=== PATIENT | male | born 1950 | race Caucasian/White ===

== ENCOUNTER → 2017-06-12 | Outpatient (CLI) | payer OTHER ==
[~2017-06-12] VITALS: Ht 188 cm; Wt 99.4 kg
[~2017-06-12] MED LIST: ACETAMINOPHEN-1 EACH PO; ATIVAN0.5 MG PO; AVELOX 400 MG400 MG PO; BACTRIM DS TAB1 EACH PO; CHLORHEXADINE120 M1 TOP; CLONIDINE0.1 PO; CYMBALTA60 MG PO; HYDROCODONE-APA1 TA1 PO; KLONOPIN0.5 MG PO; MOBIC7.5 MG PO; MS CONTIN15 MG PO; NEURONTIN 300300 M1 PO; NEURONTIN100 MG PO; OXYCONTIN PO; OXYCONTIN10 M1 PO; OXYCONTIN15 MG PO; OXYCONTIN20 M1 PO; OXYCONTIN20 MG PO; PERCOCET 7.5-31 EACH PO; TRAZODONE 150150 M1 PO; VOLTAREN GEL 1100 G1 TOP; XANAX 0.5 MG0.5 M1 PO; XANAX 0.5 MG0.5 MG PO; oxycontin PO
--- NOTE | ~2017-06-12 | HPC ---
[facility] [address] [place] [address] PAIN MANAGEMENT CONSULTATION Name: CHELSEABRIANNA Sotero Room #: REG REEMA Jay#: [id number] Admission: 06/12/17 Attend Phys: Tuan Holbrook DO Discharge: Date of : 48 Report #: [id number] THIS REPORT FOR: //name// CC: HINA Holbrook HISTORY OF PRESENT ILLNESS: The patient is a 67-year-old gentleman being treated for axial back pain status post vertebral compression fractures at L1, L2 and transverse process of L3; history of traumatic brain injury; chronic anxiety and high risk complex medication management. He had prior been seen by myself in 2013 and lost to followup, I saw him as a relatively new reconsult on 05/02/2017. We resumed the patient on MS Contin 15 mg q. 8 hours with no breakthrough medicine. He was requesting a prescription for Xanax 0.5 t.i.d. I reluctantly wrote for 30 days in total and he would absolutely need to see a psychiatrist to get this medication filled ongoing. Again, he has been prior habituated to high dose opiates. When I saw him initially in 2012 he was using p.r.n. oxycodone, we rotated to MS Contin, but he also started taking Percocet 7.5/325 up to 3 a day. At initial reconsultation on 05/02/2017, I resumed MS Contin 15 mg and went from b.i.d. to t.i.d. and discontinued p.r.n. oxycodone, roughly equally analgesic dose. The patient returns to pain clinic today. He just took his last MS Contin. He states medication has been reasonably effective. He is very anxious as he did start to go through some benzodiazepine withdrawal. He has been about 10 days out of Xanax, he states he "went through hell" with withdrawal, describing anxiety, tachycardia and diaphoresis. Lumbar back pain, he rates 7 on a VAS which is actually fairly good for the patient. No problems with daytime somnolence, mental acuity changes, constipation. PHYSICAL EXAMINATION: Shows a 67-year-old gentleman, BMI is 28.1 kilograms per meter squared. Blood pressure 124/95, pulse 103, respirations are 14. He is alert and oriented. Relatively flat affect. Status post traumatic brain injury in the distant past. His mentation is what I recall as his baseline. Lower extremity strength is diminished, but symmetric 3-4/5 to objective testing. Straight leg raising negative. Patellar and Achilles reflexes are diminished, but symmetric. Diffuse low back pain in the upper lumbar paravertebral muscles with no discrete midline trigger points noted. The patient has been working with Cheyenne Akbar to try and get a psychiatrist. They are waiting for a call back for an appointment. We reviewed the fact that opiate medications are being used to provide analgesia adequate to support activities of daily living, not attempting to achieve a specific pain score on the 0-10 Visual Analog Scale. The current opiate [address] [address] PAIN MANAGEMENT CONSULTATION Name: BRIANNA TRAN Room #: ANGE Jay#: [id number] Admission: 06/12/17 Attend Phys: Tuan Holbrook DO Discharge: Date of : 48 Report #: [id number] medications are providing sufficient analgesia to allow the patient to participate in activities of daily living. The patient is not exhibiting any aberrant behavior suggestive of drug diversion. The patient is not having any adverse reactions to medications. The patient is not suffering from daytime somnolence or mental acuity changes. The patient is managing opiate-induced constipation with appropriate pgeq-gzu-zrvwhao agents and dietary considerations. The patient was counseled on concern for caution with operating a motor vehicle while using opiate medications. A physical exam was performed and the patient's functional status was evaluated. All patients with back pain were advised against the bed rest greater than 4 days and were advised to return to normal activities. Pain score assessment was noted and the treatment plan was reviewed with the patient. All current medications, both prescribed and OTC were reviewed and reconciled on the electronic medical record. Tobacco screening was accomplished and smoking cessation was advised when indicated. BMI was noted and diet/exercise modification was recommended for all patients following outside normal parameters. I reviewed with the patient today their responsibilities to safeguard prescription medications, reviewed their responsibility to utilize medications only as prescribed by the physician. They are to seek and receive pain medications only from 1 physician group ( [facility]). They are to use 1 pharmacy and keep the clinic informed if they change pharmacies. Their responsibilities include making followup visits in a timely fashion and to avoid abrupt discontinuation of medication usage. Their responsibilities further include bringing their medications (bottles from the pharmacy with residual pills) to the visit for possible confirmation of pill counts and the patient understands it is their responsibility to submit to random drug screens to ensure both that the medications prescribed are present, and that no other controlled substances are present. All prescriptions provided today were generated electronically. RECOMMENDATION 1. Buccal drug swab today should show oxycodone and no other controlled substances. 2. We will renew MS Contin 15 mg q. 8 hours, I have taken the liberty of writing for 2 months of current medication. I talked about benzodiazepine withdrawal. I will start the patient on clonidine 0.1 at bedtime, prescription for 30 tablets with 1 refill. 3. I did offer the patient a prescription for low dose clonazepam 0.5 mg, dispensed 20 tablets, one at night for the next . Again, stressed the need to follow up with a psychiatrist for a long-acting anxiolytic agent. Medicine list was reconciled. Takes MS Contin and trazodone. [facility] [address] [place] [address] PAIN MANAGEMENT CONSULTATION Name: BRIANNA TRAN Room #: REG REEMA Jay#: [id number] Admission: 06/12/17 Attend Phys: Tuan Holbrook DO Discharge: Date of : 48 Report #: [id number] Discharged in good and stable condition. <ELECTRONICALLY SIGNED> By: Tuan Holbrook DO 06/13/17 0650 [id number] [id number] Tuan Holbrook DO /nt
[2017-06-12 09:28] VITALS: BP 124/95
== END ==
LOC: PAIN 06:58
DX: M54.5 Low back pain (principal); F41.8 Other specified anxiety disorders; Z87.81 Personal history of (healed) traumatic fracture; Z87.820 Personal history of traumatic brain injury; Z79.899 Other long term (current) drug therapy

== ENCOUNTER → 2017-08-14 | Outpatient (CLI) | payer OTHER ==
[~2017-08-14] VITALS: Ht 182.9 cm; Wt 106.1 kg
--- NOTE | ~2017-08-14 | HPC ---
[facility] [place] [address] [address] [place] [address] PAIN MANAGEMENT CONSULTATION Name: CHELSEABRIANNA Stoero Room #: REG REEMA Jay#: [id number] Admission: 08/14/17 Attend Phys: Tuan Holbrook DO Discharge: Date of : 48 Report #: [id number] THIS REPORT FOR: //name// CC: HINA Holbrook DATE OF SERVICE: 08/14/2017 HISTORY OF PRESENT ILLNESS: The patient is a 67-year-old gentleman being treated for axial back pain; history of vertebral compression fractures, L1-L2, and transverse process, L3; traumatic brain injury, requiring complex medication management. Comorbidity includes ongoing anxiety. Last seen in the pain clinic on 06/12/2017. I continued the patient on MS Contin 15 mg q.8 hours. I mandated that he see a psychiatrist to follow up with his prior Xanax prescription. I gave him a short-term course of clonidine 0.1 at bedtime and clonazepam 0.5 at bedtime (20 tablets). Last buccal swab on 06/12/2017 (last visit) was positive for morphine as expected. Positive for alprazolam metabolites as expected. The patient returns to the pain clinic today. Notes he is doing well. He has seen a psychiatrist who started him on Tranxene and Remeron at bedtime. Rates his pain a 6-7 on a 0-10 VAS. BMI is 31.7 kilograms per meter squared. Blood pressure is modestly elevated at 148/91, pulse 94, respirations are 20. States he has not fallen in the last 3 months. Medication list was reconciled. Opiate consent to treat contract was resigned today. His functional assessment score is 31/70. He rises from chair using the armrest. Endomorphic build, diffuse axial back pain. Gait is tandem. Lower extremity strength is preserved. Again, modest hypertension as noted above. We reviewed the fact that opiate medications are being used to provide analgesia adequate to support activities of daily living, not attempting to achieve a specific pain score on the 0-10 Visual Analog Scale. The current opiate medications are providing sufficient analgesia to allow the patient to participate in activities of daily living. The patient is not exhibiting any aberrant behavior suggestive of drug diversion. The patient is not having any adverse reactions to medications. The patient is not suffering from daytime somnolence or mental acuity changes. The patient is managing opiate-induced constipation with appropriate gekw-cfw-pvnlseh agents and dietary considerations. The patient was counseled on concern for caution with operating a motor vehicle while using opiate medications. A physical exam was performed and the patient's functional status was evaluated. [address] [address] PAIN MANAGEMENT CONSULTATION Name: BRIANNA TRAN Room #: REG REEMA Jay#: [id number] Admission: 08/14/17 Attend Phys: Tuan Holbrook DO Discharge: Date of : 48 Report #: [id number] All patients with back pain were advised against the bed rest greater than 4 days and were advised to return to normal activities. Pain score assessment was noted and the treatment plan was reviewed with the patient. All current medications, both prescribed and OTC were reviewed and reconciled on the electronic medical record. Tobacco screening was accomplished and smoking cessation was advised when indicated. BMI was noted and diet/exercise modification was recommended for all patients following outside normal parameters. I reviewed with the patient today their responsibilities to safeguard prescription medications, reviewed their responsibility to utilize medications only as prescribed by the physician. They are to seek and receive pain medications only from 1 physician group ( [facility]). They are to use 1 pharmacy and keep the clinic informed if they change pharmacies. Their responsibilities include making followup visits in a timely fashion and to avoid abrupt discontinuation of medication usage. Their responsibilities further include bringing their medications (bottles from the pharmacy with residual pills) to the visit for possible confirmation of pill counts and the patient understands it is their responsibility to submit to random drug screens to ensure both that the medications prescribed are present, and that no other controlled substances are present. All prescriptions provided today were generated electronically. RECOMMENDATION: Discussion with the patient and his significant other today about therapeutic options. We would like to continue MS Contin 15 mg q.8 hours. Strongly recommend increasing physical activity. He has participated in watching his significant other's 3-year-old granddaughter. He states he does get out of the house on a daily basis. We talked about walking for 20-30 minutes at a time over and above, doing simple activities of daily living. Suggested he look into going to a shopping center or one of the large "box stores" and walking on a level surface with a controlled environment. If we can get him increasing functional activity, walking, I think core stability exercises will also help improve his functional status and axial back pain. I have taken the liberty of renewing the patient's MS Contin 15 mg q.8 hours for 2 months. Follow up at that time, earlier if needed. <ELECTRONICALLY SIGNED> By: Tuan Holbrook DO 08/18/17 0747 1423 0055 Tuan Holbrook DO /nt
[2017-08-14 13:45] VITALS: BP 148/91
== END ==
LOC: PAIN 07:08
DX: M54.5 Low back pain (principal); F41.9 Anxiety disorder, unspecified; Z79.899 Other long term (current) drug therapy; Z98.890 Other specified postprocedural states

== ENCOUNTER → 2017-10-10 | Outpatient (CLI) | payer OTHER ==
[~2017-10-10] VITALS: Ht 188 cm; Wt 105.4 kg
--- NOTE | ~2017-10-10 | HPC ---
[facility] [place] [address] [place] [address] PAIN MANAGEMENT CONSULTATION Name: BRIANNA TRAN Sotero Room #: REG [facility] Pierre#: [id number] Admission: 10/10/17 Attend Phys: Tuan Holbrook DO Discharge: Date of : 48 Report #: [id number] THIS REPORT FOR: //name// CC: HINA Holbrook HISTORY OF PRESENT ILLNESS: The patient is a pleasant 67-year-old gentleman treated for a prior history of lumbar compression fracture, traumatic brain injury and axial back pain, requiring complex medication management. He has been stable on MS Contin 15 mg q. 8 hours. Last seen in pain clinic on 08/14/2017. Last random drug screen on 06/12/2017 was positive for prescribed medications. Returns to pain clinic today noting medications provide sufficient analgesia to participate in activities of daily living. Rates the pain a 6 on a VAS. Pain is primarily low back, left radiating to the right. Denies any weakness or paresthesia. PHYSICAL EXAMINATION: Shows 67-year-old gentleman, somewhat flat affect. BMI is 29.8 kilograms per meter squared. Blood pressure is 128/83, pulse 76, respirations 16, room air oxygen saturation 96%. Rises from chair using armrest, generally tandem gait. Lumbar flexion is limited to 70 degrees. Diffuse tenderness across the low back. No discrete trigger points are noted. Tender in the left SI area, though Brandi test is negative. Functional impact score is 31/70. We reviewed the fact that opiate medications are being used to provide analgesia adequate to support activities of daily living, not attempting to achieve a specific pain score on the 0-10 Visual Analog Scale. The current opiate medications are providing sufficient analgesia to allow the patient to participate in activities of daily living. The patient is not exhibiting any aberrant behavior suggestive of drug diversion. The patient is not having any adverse reactions to medications. The patient is not suffering from daytime somnolence or mental acuity changes. The patient is managing opiate-induced constipation with appropriate tijo-hlf-csqoejy agents and dietary considerations. The patient was counseled on concern for caution with operating a motor vehicle while using opiate medications. A physical exam was performed and the patient's functional status was evaluated. All patients with back pain were advised against the bed rest greater than 4 days and were advised to return to normal activities. Pain score assessment was noted and the treatment plan was reviewed with the patient. All current medications, both prescribed and OTC were reviewed and reconciled on the electronic medical record. Tobacco screening was accomplished and smoking cessation was advised when indicated. BMI was noted and diet/exercise modification was recommended for all patients following outside normal parameters. I reviewed with the patient today their responsibilities to [address] [address] PAIN MANAGEMENT CONSULTATION Name: BRIANNA TRAN Room #: REG REEMA Jay#: [id number] Admission: 10/10/17 Attend Phys: Tuan Holbrook DO Discharge: Date of : 48 Report #: [id number] prescription medications, reviewed their responsibility to utilize medications only as prescribed by the physician. They are to seek and receive pain medications only from 1 physician group ([facility]). They are to use 1 pharmacy and keep the clinic informed if they change pharmacies. Their responsibilities include making followup visits in a timely fashion and to avoid abrupt discontinuation of medication usage. Their responsibilities further include bringing their medications (bottles from the pharmacy with residual pills) to the visit for possible confirmation of pill counts and the patient understands it is their responsibility to submit to random drug screens to ensure both that the medications prescribed are present, and that no other controlled substances are present. All prescriptions provided today were generated electronically. ASSESSMENT: Axial back pain, requiring complex medication management; history of lumbar compression fracture; history of traumatic brain injury, requiring complex medication management, stable on baseline medication. Comorbidities include chronic obstructive pulmonary disease, which is his primary rate limiting factor, states he can walk a third to half a block before he gets short of breath. Axial back pain is a "nuisance" but not his "rate limiting factor" for functional status. RECOMMENDATION: Continue MS Contin 15 mg q. 8 hours, taken the liberty of writing for 2 months of current medication. Follow up at that time, earlier if needed. <ELECTRONICALLY SIGNED> By: Tuan Holbrook DO 10/13/17 0943 0927 1711 Tuan Holbrook DO /nt
[2017-10-10 14:42] VITALS: BP 128/83
== END ==
LOC: PAIN 07:21
DX: M54.9 Dorsalgia, unspecified (principal); Z79.899 Other long term (current) drug therapy; J44.9 Chronic obstructive pulmonary disease, unspecified; Z98.890 Other specified postprocedural states

== ENCOUNTER → 2017-12-11 | Outpatient (CLI) | payer OTHER ==
[~2017-12-11] VITALS: Ht 188 cm; Wt 101.5 kg
--- NOTE | ~2017-12-11 | HPC ---
[facility] [address] [address] PAIN MANAGEMENT CONSULTATION Name: CHELSEABRIANNA Sotero Room #: REG Eric Jay#: [id number] Admission: 12/11/17 Attend Phys: Tuan Holbrook DO Discharge: Date of : 48 Report #: [id number] THIS REPORT FOR: //name// CC: Physician staff HINA Holbrook DATE OF SERVICE: 12/11/2017 The patient is a 67-year-old gentleman typically treated for axial back pain, history of vertebral compression fracture, traumatic brain injury with comorbidity of COPD requiring complex medication management. Last seen in the Pain Clinic on 10/10/2017, continued on MS Contin 15 mg q. 8 hours (45 mg morphine equivalents daily). Last random drug screen 06/12/2017 was positive for prescribed medications. The patient returns to the Pain Clinic today noting medications are generally providing sufficient analgesia to participate in activities of daily living. While he rates his subjective pain score fairly high (8 on a VAS of 10), he notes he is able to participate in activities of daily living. He has not fallen in the last 3 months. He does not use a cane or walker presently. He does try and walk regularly. In the heat of the summer, he goes to the [employer] and tries to walk several days a week. Primary pain is in the low back and beltline. No radicular component is noted. PHYSICAL EXAMINATION: Shows a 67-year-old gentleman, BMI is 28.7 kg/m2. Vital signs are stable as noted in the EMR. Rises from chair using armrest, modestly antalgic gait, does have a little bit of a shuffling gait, but does not appear ataxic or precarious for balance. Diffuse axial tenderness. No discrete trigger points are noted. We reviewed the fact that opiate medications are being used to provide analgesia adequate to support activities of daily living, not attempting to achieve a specific pain score on the 0-10 Visual Analog Scale. The current opiate medications are providing sufficient analgesia to allow the patient to participate in activities of daily living. The patient is not exhibiting any aberrant behavior suggestive of drug diversion. The patient is not having any adverse reactions to medications. The patient is not suffering from daytime somnolence or mental acuity changes. The patient is managing opiate-induced constipation with appropriate amfs-qrw-yhqosiz agents and dietary considerations. The patient was counseled on concern for caution with operating a motor vehicle while using opiate medications. A physical exam was performed and the patient's functional status was evaluated. All patients with back pain were advised against the bed rest greater than 4 days and were advised to return to normal activities[place] [address] PAIN MANAGEMENT CONSULTATION Name: BRIANNA TRAN Room #: REG REEMA Jay#: [id number] Admission: 12/11/17 Attend Phys: Tuan Holbrook DO Discharge: Date of : 48 Report #: [id number] noted and the treatment plan was reviewed with the patient. All current medications, both prescribed and OTC were reviewed and reconciled on the electronic medical record. Tobacco screening was accomplished and smoking cessation was advised when indicated. BMI was noted and diet/exercise modification was recommended for all patients following outside normal parameters. I reviewed with the patient today their responsibilities to safeguard prescription medications, reviewed their responsibility to utilize medications only as prescribed by the physician. They are to seek and receive pain medications only from 1 physician group ( [facility]). They are to use 1 pharmacy and keep the clinic informed if they change pharmacies. Their responsibilities include making followup visits in a timely fashion and to avoid abrupt discontinuation of medication usage. Their responsibilities further include bringing their medications (bottles from the pharmacy with residual pills) to the visit for possible confirmation of pill counts and the patient understands it is their responsibility to submit to random drug screens to ensure both that the medications prescribed are present, and that no other controlled substances are present. All prescriptions provided today were generated electronically. ASSESSMENT: Chronic axial back pain in a gentleman with history of vertebral compression fracture (traumatic), history of traumatic brain injury requiring complex medication management, history of chronic obstructive pulmonary disease, latter relatively stable. He is a former smoker. RECOMMENDATION: Continue MS Contin 15 mg q. 8 hours. I have taken the liberty of writing for 2 months of current medication. We will have him followup in one of my [facility]. He has been very stable on his medications without any problems with daytime somnolence, mental acuity changes, or constipation. Does not exhibit any aberrant behavior suggestive of drug diversion, does not request early drug refills. <ELECTRONICALLY SIGNED> By: Tuan Holbrook DO 12/12/17 0822 1238 0130 Tuan Holbrook DO /nt
[2017-12-11 11:01] VITALS: BP 137/81
== END ==
LOC: PAIN 06:59
DX: M54.5 Low back pain (principal); J44.9 Chronic obstructive pulmonary disease, unspecified; Z79.899 Other long term (current) drug therapy; Z87.891 Personal history of nicotine dependence